=== PATIENT | female | born 1975 | race Caucasian/White ===

== ENCOUNTER 2024-12-30 16:25 | Emergency (ER) | payer OTHER ==
[~2024-12-30] VITALS: Ht 167.6 cm; Wt 66.0 kg
[2024-12-30 16:36] VITALS: BP 112/57; PULSE 84; RESP 16; TEMP 36.8; O2SAT 100
[2024-12-30] MEDS ORDERED: EMTR200C3 MT (17:09)
[2024-12-30] MEDS ORDERED: VIRE MT (17:09)
[2024-12-30] MEDS ORDERED: ONDA4TAB50 MT (17:09)
[2024-12-30] MEDS ORDERED: RALT400T MT (17:09)
[2024-12-30] MEDS: RALTEGRAVIR 400 MG TABLET PO ONE (17:23)
[2024-12-30] MEDS: ONDANSETRON 4MG ODT PO ONE (17:23)
[2024-12-30] MEDS: EMTRICITABINE 200MG CAPSULE PO ONE (17:23)
[2024-12-30] MEDS: TENOFOVIR 300MG TABLET PO ONE (17:23)
[2024-12-30 17:31] LABS: CREATININE 0.9 mg/dL (0.6-1.0); UREA NITROGEN BLOOD 11 mg/dL (9-23)
[2024-12-30 17:33] LABS: ASPARTATE AMINOTRANSFERASE 26 IU/L (<34); BILIRUBIN TOTAL 0.6 mg/dL (0.1-1.0); PROTEIN TOTAL 7.3 g/dL (6.0-8.3)
[2024-12-30 18:06] LABS: HIV 1/2 AB P24AG Negative (Negative)
[2024-12-30] MEDS ORDERED: RALTEGRAVIR 400 MG TABLET PO SCH ×2 (18:15)
[2024-12-30] MEDS ORDERED: EMTRICITABINE 200MG CAPSULE PO ONE (18:15)
[2024-12-30] MEDS ORDERED: TENOFOVIR 300MG TABLET PO SCH (18:15)
[2024-12-30 18:25] LABS: HEPATITIS C VIR.AB 0.03 INDEXVAL (0.00-0.80)
[2024-12-31] MEDS ORDERED: TENOFOVIR 300MG TABLET PO SCH (09:00)
== END 2024-12-30 20:20 | disposition home or self-care (01) ==
LOC: ER 16:25
DX: T14.90XA Injury, unspecified, initial encounter (principal); Z90.89 Acquired absence of other organs; Z79.624 Long term (current) use of inhibitors of nucleotide synthesis; Z59.00 Homelessness unspecified; W46.0XXA Contact with hypodermic needle, initial encounter; Y93.89 Activity, other specified; Y92.89 Other specified places as the place of occurrence of the external cause; Y99.0 Civilian activity done for income or pay
CPT/HCPCS: 99284; 80053; 87340; 36415; Q0162

== ENCOUNTER 2024-12-31 16:50 | Emergency (ER) | payer OTHER ==
[~2024-12-31] VITALS: Ht 162.6 cm; Wt 65.0 kg
[~2024-12-31 16:50] MED LIST: EMTR200C3 MT; ONDA4TAB50 MT; RALT400T MT; VIRE MT
[2024-12-31 16:52] VITALS: PULSE 96; RESP 16; O2SAT 100
[2024-12-31 16:53] VITALS: BP 105/71; TEMP 36.7; O2SAT 99
[2024-12-31] MEDS: RALTEGRAVIR 400 MG TABLET PO STA (17:05)
[2024-12-31] MEDS: ONDANSETRON 4MG ODT PO ONE (17:15)
== END 2024-12-31 19:54 | disposition home or self-care (01) ==
LOC: ER 16:50
DX: Z76.0 Encounter for issue of repeat prescription (principal); Z90.89 Acquired absence of other organs
CPT/HCPCS: 99283; Q0162